=== PATIENT | male | born 1975 | race Caucasian/White ===

== ENCOUNTER 2022-04-10 12:15 | Outpatient (CLI) | payer OTHER, SELFPAY ==
--- NOTE | 2022-04-10 12:36 | XR_ITS ---
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 Findings: No nodules, masses or effusions are seen. The heart is normal. The pulmonary vascularity is not increased. No pneumonia or pneumothorax is seen. There is mediastinal widening on the right whi ch may be from adenopathy. XR/XR chest 2V* [id number] Impression: Right hilar and paratracheal mediastinal widening which may be secondary to rosa nopathy.
== END 2022-04-10 12:16 | disposition home or self-care (01) ==
LOC: RAD 12:23
PROVIDERS: PCP Nurse Practitioner Family; Visit Provider Nurse Practitioner Family
DX: M06.9 Rheumatoid arthritis, unspecified (principal)
CPT/HCPCS: 71046

== ENCOUNTER 2022-09-08 12:40 | Outpatient (CLI) | payer OTHER, SELFPAY ==
--- NOTE | 2022-09-08 13:08 | USCV_ITS ---
Christophe Mcneil Age: 47 Gender: M : 1975 Exam Date: 09/08/2022 13:30 Ordering Phys: Kane Johnson DO Technologist: Exam Location: [facility] [place] Indication: murmur BP: 160 / 90 HR: 113 Rhythm: Sinus Technical Quality: Very technically difficult study MEASUREMENTS (Male / Female) Normal Values 2D ECHO LV Diastolic Diameter PLAX 3.8 cm 4.2 - 5.9 / 3.9 - 5.3 cm LV Systolic Diameter PLAX 2.6 cm IVS Diastolic Thickness 1.3 cm 0.6 - 1.0 / 0.6 - 0.9 cm IVS Systolic Thickness 1.2 cm LVPW Diastolic Thickness 1.1 cm 0.6 - 1.0 / 0.6 - 0.9 cm LVPW Systolic Thickness 1.4 cm LVOT Diameter 2.1 cm LV Ejection Fraction 2D Teich 61.3 % LV Ejection Fraction MOD 2C 69.2 % LV Ejection Fraction 2C AL 69.2 % LA Diameter 4.0 cm Aorta at Sinotubular Diameter 3.4 cm IVC Diameter 1.7 cm M-MODE Aortic Annulus Diameter 3.9 cm LA Ao Ratio MM 1.1 DOPPLER AV Peak Velocity 119.0 cm/s LVOT Peak Velocity 96.0 cm/s AV Area Cont Eq vti 3.5 cm squared AV Area Cont Eq pk 2.7 cm squared MV Area PHT 5.0 cm squared Mitral E to A Ratio 0.9 MV E' Velocity 70.0 cm/s TR Peak Velocity 148.0 cm/s TR Peak Gradient 8.8 mmHg TV Peak E Velocity 87.0 cm/s Right Atrial Pressure 3.0 mmHg Pulmonary Artery Systolic Pressu 11.8 mmHg RV Acceleration Time 0.1 s FINDINGS Left Ventricle Left ventricle is normal in size. LV systolic function is grossly normal. Regional wall motion abnormalities cannot accurately be assessed because of poor ultrasonic windows. Right Ventricle Grossly normal Right Atrium The right atrium is normal in size. Left Atrium The left atrium is normal in size. Mitral Valve Grossly normal. Aortic Valve Not well visualized. No significant stenosis or regurgitation. Tricuspid Valve Trace tricuspid regurgitation. Insufficient TR jet to calculate RVSP Pulmonic Valve Not well-visualized. Pericardium Grossly normal Aorta Grossly normal IVC The inferior vena cava appears normal. CONCLUSIONS Technically very limited quality echocardiogram because of poor ultrasonic windows and tachycardia. LV systolic function is grossly normal. Regional wall motion abnormalities cannot accurately be assessed because of poor ultrasonic windows. Valvular structures are not well visualized. Trace tricuspid regurgitation No comparison studies are available George Lang MD (Electronically Signed) Final Date: 11 September 2022 23:43 S
[2022-09-08] MEDS: perflutren protein-a microsphr 0.22 mg/mL SDV 3 mL IV (14:07)
== END 2022-09-08 12:41 | disposition home or self-care (01) ==
PROVIDERS: PCP Electrodiagnostic Medicine; Visit Provider Electrodiagnostic Medicine
DX: R01.1 Cardiac murmur, unspecified (principal)
CPT/HCPCS: C8929; Q9956